=== PATIENT | male | born 1975 | race Caucasian/White ===

== ENCOUNTER → 2016-03-11 | Outpatient (REF) | payer OTHER ==
[2016-03-11 17:21] LABS: ANION GAP 8 MEQ/L (8-16); BLOOD UREA NITROGEN 10 MG/DL (7-18); CARBON DIOXIDE LEVEL 27 MEQ/L (21-32); CHLORIDE LEVEL 104 MEQ/L (98-107); CREATININE FOR GFR 0.84 MG/DL (0.70-1.30); GLOMERULAR FILTRATION RATE > 60.0 (>60); GLUCOSE, FASTING 86 MG/DL (70-105); MEAN CORPUSCULAR HEMOGLOBIN 31.6 pg (27.0-33.0); MEAN CORPUSCULAR HGB CONC 34.8 g/dl (32.0-36.5); MEAN CORPUSCULAR VOLUME 90.9 fl (80.0-96.0); POTASSIUM SERUM 4.6 MEQ/L (3.5-5.1); RED CELL DISTRIBUTION WIDTH 12.8 % (11.5-14.5); SODIUM LEVEL 139 MEQ/L (136-145)
== END ==
LOC: M SFHCLERA 10:32
PROVIDERS: ATTEND Family Medicine
DX: G47.33 Obstructive sleep apnea (adult) (pediatric) (principal); I25.2 Old myocardial infarction; I10 Essential (primary) hypertension

== ENCOUNTER → 2016-04-05 | Outpatient (CLI) | payer OTHER ==
--- NOTE | 2016-04-09 10:50 | SLEEPHOME ---
DATE OF STUDY: 04/05/2016 ORDERED BY: Renea Khan NP Diagnostic home sleep testing was performed due to concern for the obstructive sleep apnea syndrome in this patient with a history of excessive somnolence and comorbidity of hypertension. Testing with a NOX-T3 respiratory monitoring device was used. Continuous record was made of pulse, oxygen saturation, airflow, chest and abdominal strain, and body position. 9 hours and 59 minutes of data were reviewed. Of these, 4 hours and 48 minutes were marked as time in bed. During the interval marked time in bed, there were 590 respiratory events identified of 10 seconds in duration or greater for a respiratory disturbance index of 122. The events identified were primarily obstructive, 30 mixed and 2 central apneas were also seen. The patient's heart rate averaged 99 beats per minute. Oxygen saturation initially was 82% and fell to 54% surrounding respiratory events. Testing was performed in both the supine and nonsupine positions. IMPRESSION: Abnormal home sleep testing with repetitive respiratory events and oxygen desaturations to 54% with a respiratory event index of 122 is consistent with severe obstructive sleep apnea syndrome. RECOMMENDATION: The patient should be referred for formal sleep evaluation and in laboratory pressure titration given the occurrence of central apneas and the profound oxygen desaturations. Testing should be facilitated and a bilevel device may be necessary with back up rate.
== END ==
LOC: M SLEEP HO 13:02
PROVIDERS: ATTEND Nurse Practitioner Adult Health
DX: G47.33 Obstructive sleep apnea (adult) (pediatric) (principal); G47.31 Primary central sleep apnea

== ENCOUNTER → 2016-05-10 | Outpatient (CLI) | payer OTHER ==
--- NOTE | 2016-05-10 17:44 | REP ---
LEFT SHOULDER: Four views of the left shoulder are performed. There is no acute fracture or dislocation. There is mild to moderate narrowing of the acromioclavicular joint. IMPRESSION: Degenerative changes of the AC joint. No fracture or dislocation. Further evaluation may be made with MRI if clinically indicated. Unreviewed
--- NOTE | 2016-05-10 17:45 | REP ---
LEFT HAND SERIES: Four views of the left hand are performed. There appears to be an old healed fracture of the 1st metacarpal. No acute fracture or dislocation is seen. IMPRESSION: Old healed fracture proximal 1st metacarpal. Unreviewed
== END ==
LOC: M LRY 16:06
PROVIDERS: ATTEND Family Medicine
DX: S62.515D Nondisplaced fracture of proximal phalanx of left thumb, subsequent encounter for fracture with routine healing (principal); M75.42 Impingement syndrome of left shoulder; M19.012 Primary osteoarthritis, left shoulder